=== PATIENT | female | born 1960 | race Caucasian/White ===

== ENCOUNTER 2017-05-23 08:31 | Emergency (ER) | payer OTHER ==
[~2017-05-23] VITALS: Ht 152.4 cm; Wt 46.7 kg
--- OUTSIDE RECORDS SUMMARY | ~2017-05-23 | XMS | Clinical Summary ---
Demographics + + + | Address | [address] | | | [place] [address] | + + + | Home Phone | | + + + | Preferred Language | Unknown | + + + | Marital Status | | + + + | Anabaptism Affiliation | Unknown | + + + | Race | White | + + + | Ethnic Group | Not or | + + + Author + + + | Author | [facility] | + + + | Organization | [facility] | + + + | Address | Unknown | + + + | Phone | Unavailable | + + + Support + + +---------+ + | Name | Relationship | Address | Phone | + + +---------+ + | Yaya Quezada | ECON | Unknown | | + + +---------+ + Care Team Providers + +------+ + | Care Energy Crop Farmer Name | Role | Phone | + +------+ + | Toni Gaona MD | PP | | + +------+ + Source Comments [facility] is fully live on both [facility] and [facility] Allergies + + + + + + | Active Allergy | Reactions | Severity | Noted | Comments | | | | | Date | | + + + + + + | Grass | Sneezing, Pruritus, | | 01/04/20 | | | | Facial Swelling | | 17 | | + + + + + + Current Medications + + +-------+---------+------+------+-------+ | Prescription | Sig. | Disp. | Refills | Star | End | Statu | | | | | | t | Date | s | | | | | | Date | | | + + +-------+---------+------+------+-------+ | temazepam 15 mg | | | | 12/2 | | Activ | | oral capsule | | | | 7/20 | | e | | | | | | 15 | | | + + +-------+---------+------+------+-------+ | levothyroxine 50 | Take by mouth once | | | 11/0 | | Activ | | mcg oral tablet | daily | | | 8/20 | | e | | | | | | 17 | | | + + +-------+---------+------+------+-------+ | VITAMIN E ORAL | Take 400 Units by | | | | | Activ | | | mouth once daily | | | | | e | + + +-------+---------+------+------+-------+ Active Problems Not on file Family History + + +------+ + | Medical History | Relation | Name | Comments | + + +------+ + | Cancer | Brother | | Lung | + + +------+ + | Alcohol/Drug | Father | | | + + +------+ + | Cancer | Maternal | | Breast | | | Aunt | | | + + +------+ + | Genetic | Maternal | | | | | Aunt | | | + + +------+ + | Heart Disease | Maternal | | | | | Aunt | | | + + +------+ + | Cancer | Maternal | | Skin | | | Grandfath | | | | | er | | | + + +------+ + | Diabetes | Maternal | | | | | Grandfath | | | | | er | | | + + +------+ + | Cancer | Maternal | | Breast | | | Grandmoth | | | | | er | | | + + +------+ + | Arthritis | Mother | | | + + +------+ + | Diabetes | Mother | | | + + +------+ + | Heart Disease | Mother | | | + + +------+ + | Hypertension | Mother | | | + + +------+ + | Stroke | Mother | | | + + +------+ + | Arthritis | Paternal | | | | | Grandmoth | | | | | er | | | + + +------+ + | Heart Disease | Son | | | + + +------+ + + +------+--------+ + | Relation | Name | Status | Comments | + +------+--------+ + | Brother | | | | + +------+--------+ + | Father | | | | + +------+--------+ + | Maternal Aunt | | | | + +------+--------+ + | Maternal Grandfather | | | | + +------+--------+ + | Maternal Grandmother | | | | + +------+--------+ + | Mother | | | | + +------+--------+ + | Paternal Grandmother | | | | + +------+--------+ + | Son | | | | + +------+--------+ + Social History + + + +--------+ + | Tobacco Use | Types | Packs/Day | Years | Date | | | | | Used | | + + + +--------+ + | Former Smoker | Cigarettes | 1 | | Quit: 2003 | + + + +--------+ + + +---+---+---+ | Smokeless Tobacco: | | | | | Never Used | | | | + +---+---+---+ + + +---------+ + | Alcohol Use | Drinks/We | oz/Week | Comments | | | ek | | | + + +---------+ + | Yes | | | occassionally | + + +---------+ + + + + | Sex Assigned at | Date Recorded | | | | + + + | Not on file | | + + + Last Filed Vital Signs + + + + | Vital Sign | Reading | Time Taken | + + + + | Blood Pressure | 125/62 | 01/03/2017 2:18 PM PST | + + + + | Pulse | 78 | 01/03/2017 2:18 PM PST | + + + + | Temperature | 36.7 C (98.1 F) | 01/03/2017 2:18 PM PST | + + + + | Respiratory Rate | 16 | 01/03/2017 2:18 PM PST | + + + + | Oxygen Saturation | - | - | + + + + | Inhaled Oxygen | - | - | | Concentration | | | + + + + | Weight | 50.3 kg (111 lb) | 01/03/2017 2:18 PM PST | + + + + | Height | 151.1 cm (4' 11.5") | 01/03/2017 2:18 PM PST | + + + + | Body Mass Index | 22.04 | 01/03/2017 2:18 PM PST | + + + + Plan of Treatment + + + + + | Health Maintenance | Due Date | Last Done | Comments | + + + + + | INFLUENZA VACCINE | | | | | (FLU SHOT) | 8 | | | + + + + + Results Not on filefrom Last 3 Months
--- OUTSIDE RECORDS SUMMARY | ~2017-05-23 | XMS | Clinical Summary ---
Demographics + + + | Address | [address] | | | [place] [address] | + + + | Home Phone | | + + + | Preferred Language | Unknown | + + + | Marital Status | | + + + | Druze Affiliation | Unknown | + + + | Race | Unknown | + + + | Ethnic Group | Unknown | + + + Author + + + | Author | [facility] | | | and [place] | + + + | Organization | [facility] | | | [facility] [place] | + + + | Address | Unknown | + + + | Phone | Unavailable | + + + Support + + + + + | Name | Relationship | Address | Phone | + + + + + | Yaya Quezada | ECON | [address], | | | | | [place] | | | | | [address] | | + + + + + Care Team Providers + +------+ + | Care Equipment Maintenance Supervisor Name | Role | Phone | + +------+ + | Andrew Larsen DO | PP | | + +------+ + Allergies No Known Allergies Current Medications + + +-------+---------+------+------+-------+ | Prescription | Sig. | Disp. | Refills | Star | End | Statu | | | | | | t | Date | s | | | | | | Date | | | + + +-------+---------+------+------+-------+ | dexamethasone | | | | 12/2 | | Activ | | (DECADRON) 4 mg | | | | 7/20 | | e | | tablet | | | | 15 | | | + + +-------+---------+------+------+-------+ | LORazepam (ATIVAN) | | | | 12/0 | | Activ | | 1 mg tablet | | | | 4/20 | | e | | | | | | 15 | | | + + +-------+---------+------+------+-------+ | ondansetron | | | | 12/2 | | Activ | | (ZOFRAN) 8 MG tablet | | | | 7/20 | | e | | | | | | 15 | | | + + +-------+---------+------+------+-------+ | temazepam | | | | 12/2 | | Activ | | (RESTORIL) 15 mg | | | | 7/20 | | e | | capsule | | | | 15 | | | + + +-------+---------+------+------+-------+ | tocopherol | Take 400 Units by | | | | | Activ | | (VITAMIN E) 400 | mouth 2 times daily. | | | | | e | | units capsule | | | | | | | + + +-------+---------+------+------+-------+ Active Problems + + + | Problem | Noted Date | + + + | Colon cancer metastasized to multiple sites (HCC) | 01/27/2015 | + + + + + | Overview: ACTIVE DIAGNOSIS: T4a, N0, M0, Stage IIB colon | | cancer status post R1 resection 08/26/2014, with intraperitoneal | | recurrence confirmed in January,. | + + Social History + +-------+ +--------+------+ | Tobacco Use | Types | Packs/Day | Years | Date | | | | | Used | | + +-------+ +--------+------+ | Former Smoker | | 1 | 10 | | + +-------+ +--------+------+ + +---+---+---+ | Smokeless Tobacco: | | | | | Never Used | | | | + +---+---+---+ + + +---------+ + | Alcohol Use | Drinks/We | oz/Week | Comments | | | ek | | | + + +---------+ + | Yes | | | not now, socially before with 1 times per | | | | | week | + + +---------+ + + + + | Sex Assigned at | Date Recorded | | | | + + + | Not on file | | + + + Last Filed Vital Signs + + + + | Vital Sign | Reading | Time Taken | + + + + | Blood Pressure | 109/55 | 02/06/2017848 PST | + + + + | Pulse | 70 | 02/06/2017848 PST | + + + + | Temperature | 36.8 C (98.2 F) | 02/06/2017848 PST | + + + + | Respiratory Rate | 16 | 02/06/2017848 PST | + + + + | Oxygen Saturation | 98% | 02/06/2017848 PST | + + + + | Inhaled Oxygen | - | - | | Concentration | | | + + + + | Weight | 49.5 kg (109 lb 1.6 | 02/09/2015 1026 PST | | | oz) | | + + + + | Height | 152 cm (4' 11.84") | 01/27/2015 1711 PST | + + + + | Body Mass Index | 21.42 | 02/09/2015 1026 PST | + + + + Plan of Treatment + + + + + | Health Maintenance | Due Date | Last Done | Comments | + + + + + | Hepatitis C | | | | | Screening | 0 | | | + + + + + | Vaccine: | | | | | Dtap/Tdap/Td (1 - | 9 | | | | Tdap) | | | | + + + + + | Vaccine: | | | | | Pneumococcal 19-64 | 9 | | | | Highest Risk (1 of 3 | | | | | - PCV13) | | | | + + + + + | CERVICAL CANCER | | | | | SCREENING (PAP EVERY | 1 | | | | 3 YEARS 21-64 ) | | | | + + + + + | BREAST CANCER | | | | | SCREENING (MAMM Q2 | 0 | | | | YEARS 50-74) | | | | + + + + + | COLON CANCER | | | | | SCREENING | 0 | | | | (COLONOSCOPY EVERY | | | | | 10 YEARS 50-75) | | | | + + + + + | Vaccine: Influenza | | | | | (Season Ended) | 8 | | | + + + + + Results Not on filefrom Last 3 Months Insurance + +--------+ +------+ +---------+ | Payer | Benefi | Subscriber | Type | Phone | Address | | | t Plan | ID | | | | | | / | | | | | | | Group | | | | | + +--------+ +------+ +---------+ | [employer] | [employer]EL | xxxxxxxxxxx | PPO | [phone] | | | PLAN | PHP | | | [id number] | | | | HDHP | | | | | | | PPO | | | | | | | CNCTD | | | | | | | CARE | | | | | + +--------+ +------+ +---------+ + +--------+ +--------+ + + | Guarantor Name | Accoun | Relation to | Date | Phone | Billing Address | | | t Type | Patient | of | | | | | | | | | | + +--------+ +--------+ + + | STACI QUEZADA | Person | Self [birth year] Home: | [address] | | | [place] | | [phone] | [phone] [place] [address] | | | [place]i | | | [phone] | | + +--------+ +--------+ + +
[~2017-05-23 08:31] MED LIST: COLACE100 MG PO; DEXAMETHASONE4 MG PO; HYDROCODON-ACE1 EAC8 PO; IBUPROFEN200 M1 PO; LEVOTHYROXINE25 MCG PO; LORAZEPAM1 MG PO; OMEGA 3-6-9 11200 M1 PO; PERCOCET 5-3251 EACH; STOOL SOFTENER100 M1 PO; TEMAZEPAM15 MG PO; VITAMIN C500 M1 PO; VITAMIN E400 UNI2 PO; VITAMIN E400 UNIT PO; ZOFRAN ODT4 MG PO; ZOFRAN4 MG PO; [UNRECOGNIZED DRUG - OTHER] PO
[2017-05-23] MEDS ORDERED: AUGMENTIN 875-1 EACH PO (08:44)
[2017-07-13] MEDS ORDERED: ESTRACE42.5 GM VAGINAL (14:44)
[2017-08-01] MEDS ORDERED: STIVARGA40 MG PO (15:17)
[2017-08-01] MEDS ORDERED: SENNA CONCENTR8.6 MG PO (15:18)
== END 2017-05-23 09:35 | disposition home or self-care (01) ==
LOC: ED 08:31
PROC: 0HQFXZZ Repair Right Hand Skin, External Approach (ICD-10-PCS; principal; 2017-05-23)
DX: S61.411A Laceration without foreign body of right hand, initial encounter (principal); Z23 Encounter for immunization; Z91.048 Other nonmedicinal substance allergy status; Z79.899 Other long term (current) drug therapy; W25.XXXA Contact with sharp glass, initial encounter
CPT/HCPCS: 12002; 90715; 99282